=== PATIENT | male | born 1985 | race African-American/Black ===

== ENCOUNTER 2016-09-06 12:09 | Emergency (ER) | payer OTHER ==
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
[~2016-09-06 12:09] MED LIST: ALBUTEROL17 GM INH
== END 2016-09-06 15:00 | disposition home or self-care (01) ==
LOC: CED 12:09
DX: S20.419A Abrasion of unspecified back wall of thorax, initial encounter (principal); Y00.XXXA Assault by blunt object, initial encounter; Y92.009 Unspecified place in unspecified non-institutional (private) residence as the place of occurrence of the external cause
CPT/HCPCS: 70450; 71111; 72040; 72072; 72100; 72170; 72220; 99284